=== PATIENT | male | born 1955 | race Caucasian/White ===

== ENCOUNTER 2017-07-29 13:30 | Observation (INO) | payer MEDICAID ==
[~2017-07-29] VITALS: Ht 185.4 cm; Wt 106.6 kg
--- NOTE | ~2017-07-29 | HEMODYNAMI ---
PATIENT:ARMIDA CHATMAN MEDICAL RECORD: [id number] : 53 LOCATION[facility] [id number] ADMISSION DATE: 07/29/17 Generatedon:07/30/201712:58 Patient name: ARMIDA CHATMAN Patient #: [id number] SSN: : 1955 Date of study: 07/30/2017 Page: Of Hemodynamic Procedure Report Patient Data Patient Demographics Procedure consent was obtained First Name: ARMIDA Gender: Male Last Name: LURDES : 1955 Patient #: [id number] Age: 61 year(s) Race: Unknown Additional ID: [id number] Contact details Address: [address] State: [place] City: [place] Zip code: [address] Admission Admission Data Admission Date: 07/29/2017 Admission Time: 17:03 Room #: 2117 Lab Results Lab Result Date: 07/30/2017 Lab Result Time: 0:00 Biochemistry Name Units Result Min Max BUN mg/dl 19 --(----)*- 7 18 Creatinine mg/dl 1 --(--*-)-- 0.6 1.3 CBC Name Units Result Min Max Hemoglobin g/dl 16 --(--*-)-- 13.5 17.5 Procedure Procedure Types Cath Procedure Diagnostic Procedure C Coronaries only Peripheral Cath Diagnostic Procedure Cath Peripheral Renal Arteriogram Procedure Description Procedure Date Procedure Date: 07/30/2017 Procedure Start Time: 12:46 Procedure End Time: 12:57 Procedure Staff Name Function Benny Delacruz MD Performing Physician Lashonda Bedoya RT Monitor Milagros Lew RT Scrub Geneva Wesley RN Nurse Procedure Data Cath Procedure Fluoroscopy Diagnostic fluoroscopy Total fluoroscopy Time: 2.6 time: 2.6 min min Diagnostic fluoroscopy Total fluoroscopy dose: 571 dose: 571 mGy mGy Contrast Material Contrast Material Type Amount (ml) Isovue 300 68 Entry Location Entry Primary Successful Side Size Upsize Upsize Entry Closure Succes sful Closure Location (Fr) 1 (Fr) 2 (Fr) Remarks Device Remarks Femoral Right 5 Fr Exoseal artery Estimated blood loss: 5 ml Diagnostic catheters Device Type Used For End Catheter Placement MULTIPACK Pigtail 5 Fr LV Angiography catheter MULTIPACK JL 4.0 5Fr Left Coronary catheter Angiography MULTIPACK 3DRC 5Fr Multi-vessel catheter Angiography DIAGNOSTIC JL 6 5Fr Left Coronary catheter ([id number]) Angiography Procedure Complications No complications Procedure Medications Medication Administration Route Dosage 0.9% NaCl I.V. 100 ml/hr Oxygen NC 2 l/min Lidocaine 2% added to field 20 Heparin Flush Bag added to field 2 bags (1000units/500ml NS) Fentanyl I.V. 50 mcg Versed I.V. 1 mg Fentanyl I.V. 50 mcg Versed I.V. 1 mg Hemodynamics Rest HGB: 16 (g/dl) Heart Rate: 67 (bpm) Snapshots Pre Cath Intra NCS Post Cath Vital Signs Time Heart Resp SPO2 etCO2 NIBP (mmHg) Rhythm Pain Sedation Rate (ipm) (%) (mmHg) Status Level (bpm) 12:18:54 56 16 100 0 142/82(132) NSR 0 (11) 10(A) , No pain 12:23:06 55 16 99 0 145/87(126) NSR 0 (11) 10(A) , No pain 12:27:18 68 16 98 0 142/89(109) NSR 0 (11) 10(A) , No pain 12:31:25 62 18 96 0 127/81(102) NSR 0 (11) 10(A) , No pain 12:35:33 61 18 96 0 123/80(102) NSR 0 (11) 10(A) , No pain 12:39:41 61 17 96 0 118/76(92) NSR 0 (11) 10(A) , No pain 12:43:47 61 18 96 0 120/75(85) NSR 0 (11) 10(A) , No pain 12:47:53 58 10 96 0 117/78(90) NSR 0 (11) 9(A) , No pain 12:51:59 64 16 96 0 113/75(99) NSR 0 (11) 9(A) , No pain 12:56:02 63 16 96 0 110/76(89) NSR 0 (11) 10(A) , No pain Medications Time Medication Route Dose Verified Delivered Reason Notes E ffectiveness by by 12:21:48 0.9% NaCl I.V. 100ml/hr Benny Bean used for Jayme Wesley RN procedure 12:21:58 Oxygen NC 2 l/min Benny Bean Per Jayme Wesley RN physician 12:22:06 Lidocaine 2% added 20ml Benny Mojicafany for local to vial Jayme Wesley RN anesthetic field 12:22:14 Heparin Flush added 2 bags Benny Bean used for Bag to Jayme Wesley RN procedure (1000units/500ml field NS) 12:45:58 Fentanyl I.V. 50 mcg Benny Bean for Jayme Wesley RN sedation 12:46:06 Versed I.V. 1 mg Benny Mojicafany for Jayme Wesley RN sedation 12:48:06 Fentanyl I.V. 50 mcg Benny Bean for Jayme Wesley RN sedation 12:48:14 Versed I.V. 1 mg Benny Portilloy for Jayme Wesley RN sedation Procedure Log Time Note 11:52:53 Milagros Lew RT(R) sent for patient. Start room use. 11:52:54 Time tracking: Regular hours 11:52:59 Plan of Care:Hemodynamics will remain stable., Cardiac rhythm will remain stable., Comfort level will be maintained., Respiratory function will remain adequate., Patient/ family verbilizes understanding of procedure., Procedure tolerated without complication., Recovers from procedure without complications.. 11:57:00 Lab Result : BUN 19 mg/dl 11:57:00 Lab Result : Hemoglobin 16 g/dl 11:57:00 Lab Result : Creatinine 1 mg/dl 12:10:15 Patient received from Med II to CCL 2 Alert and oriented. Tansferred to table in Supine position. 12:10:17 Warm blankets applied, and steven hugger turned on for patient comfort. 12:10:18 Correct patient and procedure confirmed by team. 12:10:19 Signed procedure consent form obtained from patient. 12:10:21 ECG and BP/O2 sat monitors applied to patient. 12:17:43 Vital chart was started 12:17:54 Baseline sample Acquired. 12:17:55 Full Disclosure recording started 12:18:03 H&P Date Dictated: 07/29/2017 Within 30 days and on chart., H&P Addendum completed by physician on day of procedure. (MUST COMPLETE FOR ALL OUTPATIENTS). 12:18:05 Pre-procedure instructions explained to patient. 12:18:05 Pre-op teaching completed and patient verbalized understanding. 12:18:07 Family in waiting room. 12:18:08 Patient NPO since Midnight. 12:18:11 Is the patient allergic to Iodine/contrast media? No. 12:18:17 Was the patient premedicated? No 12:18:29 Is patient on blood thinner?Yes 12:20:21 ACC The patient was administered the following blood thiners within the last 24 hours: ACCPlavix, ACCLovenox 12:20:23 Patient diabetic? No. 12:20:27 Previous problem with sedation/anesthesia? No ? 12:20:28 Snore? Yes 12:20:29 Sleep apnea? No 12:20:30 Deviated septum? No 12:20:31 Opens mouth fully? Yes 12:20:32 Sticks out tongue? Yes 12:20:36 Airway obstruction? No ? 12:21:00 Dentures? No ? 12:21:10 Pre procedure: right dorsailis pedis pulse 1+ Palpable, but thready & weak; easily obliterated 12:21:14 Patient pain scale 0/10 ?. 12:21:21 IV patent on arrival in left forearm with 0.9% NaCl at KVO. 12:21:23 Lab results completed and on chart. 12:21:24 Alarms reviewed by R. N. 12:21:24 Sharps counted by scrub and verified by R.N. 12:21:48 0.9% NaCl 100ml/hr I.V. was administered by Geneva Wesley RN; used for procedure; 12:21:58 Oxygen 2 l/min NC was administered by Geneva Wesley RN; Per physician; 12:22:06 Lidocaine 2% 20ml vial added to field was administered by Geneva Wesley RN; for local anesthetic; 12:22:14 Heparin Flush Bag (1000units/500ml NS) 2 bags added to field was administered by Geneva Wesley RN; used for procedure; 12:44:46 Zero performed for pressure channel P1 12:44:56 Physician arrived 12:44:56 --------ALL STOP TIME OUT------ 12:44:57 Final Timeout: patient, procedure, and site verified with staff and physician. All members of the team are in agreement. 12:45:01 Right groin site verified by team. 12:45:04 Physical assessment completed. ASA score P 2 - A patient with mild systemic disease as per Benny Delacruz MD. 12:45:08 Sedation plan: IV Moderate Sedation Medication:Versed, Fentanyl 12:45:20 Use device set Femoral Dx 12:45:21 ACIST Syringe (07622) opened to sterile field. 12:45:21 Bag Decanter (2002S) opened to sterile field. 12:45:22 Medline Cath Pack ([id number]) opened to sterile field. 12:45:22 SHEATH 5FR Bethel (TDR327) opened to sterile field. 12:45:23 DIAGNOSTIC WIRE .035 260cm J wire (246907) opened to sterile field. 12:45:25 ACIST Hand Control (79360) opened to sterile field. 12:45:25 ACIST Manifold (84813) opened to sterile field. 12:45:26 DIAGNOSTIC Multipack 5Fr catheter set (HT2251) opened to sterile field. 12:45:27 Tegaderm 4 x 4 (1626W) opened to sterile field. 12:45:58 Fentanyl 50 mcg I.V. was administered by Geneva Wesley RN; for sedation; 12:46:06 Versed 1 mg I.V. was administered by Geneva Wesley RN; for sedation; 12:46:26 Procedure started. 12:46:29 Local anesthetic to right femoral artery with Lidocaine 2% by Benny Delacruz MD.INITIAL ACCESS ONLY 12:47:59 A 5 Fr sheath was inserted into the Right Femoral artery 12:48:06 Fentanyl 50 mcg I.V. was administered by Geneva Wesley RN; for sedation; 12:48:14 Versed 1 mg I.V. was administered by Geneva Wesley RN; for sedation; 12:48:20 A MULTIPACK Pigtail 5 Fr catheter was advanced over the wire and used for LV Angiography. 12:49:18 Catheter removed. 12:49:35 A MULTIPACK JL 4.0 5Fr catheter was advanced over the wire and used for Left Coronary Angiography. 12:49:50 Catheter removed. unable to cannulate vessel. 12:50:59 A MULTIPACK 3DRC 5Fr catheter was advanced over the wire and used for Multi-vessel Angiography. 12:51:04 RCA angiography performed. 12:51:07 Injector settings: Ml/sec: 3, Volume: 6, 12:51:13 Bilateral renal angiography performed. 12:52:16 Catheter removed. 12:52:39 A DIAGNOSTIC JL 6 5Fr catheter ([id number]) was advanced over the wire and used for Left Coronary Angiography. 12:54:00 LCA angiography performed. 12:54:04 Injector settings: Ml/sec: 3, Volume: 6, 12:54:14 Catheter removed. 12:54:17 EXOSEAL 5Fr (EX500) opened to sterile field. 12:54:29 Sheath removed intact; hemostasis achieved with Exoseal to the Right Femoral artery. 12:54:32 Procedure ended.(Physican Out) 12:54:51 Fluoroscopy time 02.60 minutes. 12:54:56 Fluoroscopy dose: 571 mGy 12:54:56 Flurop Dose total: 571 12:55:41 Contrast amount:Isovue 300 68ml. 12:55:51 Insertion/operative site no bleeding no hematoma. 12:55:53 Post-op/insertion site Right Femoral artery dressed using a 4 x 4 and Tegaderm. 12:55:56 Post right femoral artery:stable 12:55:57 Post Procedure Pulses reassessed and unchanged 12:56:00 Post procedure rhythm: unchanged. 12:56:04 Estimated blood loss: 5 ml 12:56:05 Post procedure instruction explained to patient.Patient verbalizes understanding. 12:56:06 Patient needs reinforcement of post procedure teaching. 12:56:55 Procedure type changed to Cath procedure, Diagnostic procedure, LHC, Coronaries only, Peripheral Cath Diagnostic Procedure, Cath Peripheral, Renal Arteriogram 12:57:19 Procedure and supply charges have been captured, reviewed, submitted and are correct. 12:57:24 Procedure Complication : No complications 12:57:26 Vital chart was stopped 12:57:26 See physician's report for complete and final results. 12:57:[address] [facility]. 12:57:30 Patient transfered to [facility] with Stretcher. 12:57:32 Procedure ended. 12:57:32 Full Disclosure recording stopped 12:57:40 End room use (Document Last) Device Usage Item Name Manufacture Quantity Catalog Hospital Part Current Minimal L ot# / Number Charge Number Stock Stock Serial# Code ACIST Acist 1 91378 914402 710318 637897 20 Syringe Medical (65722) Systems Inc Bag Microtek 1 2001S 348090 20480 749922 5 Decanter Medical Inc. (2001S) Medline Cardinal 1 [id number] 321478 54319 065473 5 Cath Pack Health ([id number]) SHEATH 5FR Terumo 1 RSR710 375894 288953 723951 40 Bethel (XOG607) DIAGNOSTIC St Celso 1 216273 713931 030685 913929 30 WIRE .035 260cm J wire (185955) ACIST Hand Acist 1 69610 121970 170874 079501 5 Control Medical (58243) Systems Inc ACIST Acist 1 84132 798045 821385 657359 5 Manifold Medical (83086) Systems Inc DIAGNOSTIC Cardinal 1 AD9624 525074 82497 955294 30 Multipack Health 5Fr catheter set (GD0742) Tegaderm 4 3M 1 1626W 829334 884447 507992 5 x 4 (1626W) MULTIPACK Cardinal 1 291280 5 Pigtail 5 Health Fr catheter MULTIPACK Cardinal 1 098340 5 JL 4.0 5Fr Health catheter MULTIPACK Cardinal 1 529439 5 3DRC 5Fr Health catheter DIAGNOSTIC Cardinal 1 [id number] 801408 885194 989451 5 JL 6 5Fr Health catheter (235398N) EXOSEAL 5Fr Cardinal 1 EX500 447822 494487 926780 10 (EX500) Health Signature Audit [place] Stage Time Signature Unsigned Intra-Procedure 07/30/2017 Lashonda Bedoya 12:58:37 PM RT(R) Signatures Monitor : Lashonda Bedoya RT Signature : Date : Time : [facility] [address] [place] [address]
--- NOTE | ~2017-07-29 | DS ---
PATIENT:ARMIDA CHATMAN :53 MEDICAL RECORD: [id number] DISCHARGE SUMMARY ADMISSION DATE: 07/29/17 DISCHARGE DATE: 07/30/17 DIAGNOSES: 1. Hypertensive crisis. 2. Essential hypertension. 3. Aortic stenosis. HOSPITAL COURSE: This is a gentleman who presents with hypertensive crisis, was found to have a mildly elevated troponin. However, cardiac catheterization revealed no significant coronary artery disease. The aortic valve could not be crossed at the time of cardiac catheterization. He was placed on Coreg, lisinopril, his blood pressure is under good control. He did undergo renal angiography and has no renal artery stenosis, was discharged home with the addition of the carvedilol and lisinopril to his medical regimen. We will follow with him in 1-2 weeks for an echocardiogram to evaluate aortic valve. TRANSINT:[id number] Voice Confirmation ID: [id number] DOCUMENT ID: [id number] MERLINE WHITE MD CC: [id number] DICTATION DATE: 07/30/17 1433 MANAGER BATTERY: 07/31/17 0300 DIS IN 07/30/17 [facility] [address] [place] [id number]
--- NOTE | ~2017-07-29 | HP ---
PATIENT: ARMIDA CHATMAN MEDICAL RECORD: [id number] ACCOUNT: [id number] LOCATION:[facility].2117 : 53 ADMISSION DATE: 07/29/17 HISTORY AND PHYSICAL EXAMINATION DIAGNOSES: 1. Unstable angina. 2. Hypertensive crisis. 3. Abnormal ECG. HISTORY OF PRESENT ILLNESS: This is a gentleman with no past history of ischemic heart disease, has been having chest pain, chest discomfort, presented with hypertension with systolic blood pressure in the 200 range as well as an increased troponin. His EKG has T-wave inversions laterally consistent with ischemia. REVIEW OF SYSTEMS: The patient reports easy bruising but reports no swollen glands. The patient reports no fever, no night sweats, no significant weight gain, no significant weight loss. No significant exercise tolerance. The patient reports no dry eyes, no irritation, no vision change. Patient reports no difficulty hearing and no ear pain. Patient reports no frequent nose bleeds or nose and sinus problems. Patient reports on arm pain on exertion. No shortness of breath while lying down. No history of heart murmur. Patient reports no cough, no wheezing or coughing up blood. Patient reports no abdominal pain, no vomiting. Normal appetite. No diarrhea and not vomiting blood. No nausea and no constipation. Patient reports no incontinence. No difficulty urinating. No hematuria. No increased frequency. Patient reports no muscle aches. No weakness, no arthralgias, no back pain. No swelling of the extremities. Patient reports no abnormal mole, no jaundice, no rashes. Reports no loss of consciousness. No weakness and no numbness. No seizures, dizziness, or headaches. The patient reports no depression, no sleep disturbance, feeling safe in a relationship and no alcohol abuse. Patient reports on fatigue. Reports no runny nose or sinus pressure. No itching, no hives, and no frequent sneezing. PHYSICAL EXAMINATION: GENERAL APPEARANCE: Well-nourished, well-developed, appears stated age. Level of distress, comfortable. PSYCHIATRIC: Mental status, alert, normal affect. Orientation, oriented to time, place and person. EYES: Lids and conjunctiva, noninjected. No discharge, no pallor. ENT: Lips, teeth, gums, normal dentition. Oropharynx, no cyanosis, no pallor. NECK: Carotid arteries, bilateral normal upstroke, no bruits, no thrills. JUGULAR VEINS: No jugular venous pressure or distention. CERVICAL LYMPH NODES: Nontender, nonenlarged. THYROID: Not enlarged. Nontender. No nodules. LUNGS: Respiratory effort, unlabored. CHEST: Normal curvature. No thoracic deformity. No chest wall tenderness. Percussion, resonant. Auscultation, clear. No wheezes, no rales, no rhonchi. CARDIOVASCULAR: Precordial exam, nondisplaced. No heaves or pericardial thrills. Rate and rhythm, regular. Heart sounds, normal S1, normal S2. No S3, no gallop, no rub. Systolic murmur, not heard. Diastolic murmur, not heard. EXTREMITIES: No cyanosis, no edema. Peripheral pulses, full and equal in all extremities, except as noted. No bruits appreciated. ABDOMEN: Soft, nondistended. Normal aorta. No bruit. Nontender. No masses. HISTORY AND PHYSICAL [id number] LURDES,ARMIDA Liver, nontender, no hepatomegaly. Spleen, nontender, no splenomegaly. MUSCULOSKELETAL: No joint tenderness. No joint swelling. No erythema. NEUROLOGICAL: Normal gait, normal strength, normal tone. SKIN: Warm and dry. OVERALL IMPRESSION: Hypertensive crisis with ischemic heart disease. He may have underlying coronary artery disease as well, but he clearly has demand ischemia. We will start him on a beta-gee, DARRYL inhibitor, aspirin, and Plavix as well. PLAN: Proceed with coronary angiography in the a.m. Further care depends upon findings of the angiography. TRANSINT:[id number] Voice Confirmation ID: [id number] DOCUMENT ID: [id number] MERLINE WHITE MD at 1429 CC: [id number] DICTATION DATE: 07/29/17 1553 BUNK HOUSE WORKER: 07/29/17 1651 ADM IN [facility] [address] [place] [address]
[2017-07-29 14:08] LABS: BASOPHILS 0.1 % (0-2); EOSINOPHILS 0 % (0-7); HEMATOCRIT 47.2 % (42.0-54.0); IMMATURE GRANULOCYTES 0.3 % (0-5); LYMPHOCYTES 15.3 % (15-50); MCH 29.6 pg (26.0-34.0); MCHC 33.9 g/dL (31.0-37.0); MCV 87.2 fL (80.0-100.0); MEAN PLATELET VOLUME 10.7 fL (7.4-10.4); NEUTROPHILS 80.3 % (40-80); PLATELET COUNT 207 10x3/uL (130-400); RBC 5.41 10x6/uL (4.20-6.10); RDW 15.1 % (11.5-14.5)
[2017-07-29 14:19] LABS: APPEARANCE CLEAR (CLEAR); BACTERIA FEW /hpf (NONE SEEN); BILIRUBIN NEGATIVE (NEGATIVE); COLOR YELLOW (YELLOW); EPITHELIAL CELLS OCC /hpf (0-5); GLUCOSE NEGATIVE (NEGATIVE); KETONE NEGATIVE (NEGATIVE); NITRITE NEGATIVE (NEGATIVE); PROTEIN 2+ mg/dL (NEGATIVE); RED CELLS - URINE OCC /hpf (0-5); UROBILINOGEN NORMAL (NORMAL); WHITE CELLS - URINE NSEEN /hpf (0-5)
[2017-07-29 15:01] LABS: ALBUMIN 3.7 g/dL (3.4-5.0); ALKALINE PHOSPHATASE 72 U/L (46-116); ALT (SGPT) 33 U/L (10-68); BILIRUBIN - TOTAL 0.41 mg/dL (0.2-1.3); CALC OSMOLALITY 281 mosm/kg (275-300); CALCIUM 8.8 mg/dL (8.5-10.1); CARBON DIOXIDE 25.1 mmol/L (21.0-32.0); CHLORIDE - SERUM 104 mmol/L (98-107); GLUCOSE 120 mg/dL (74-106); POTASSIUM - SERUM 4.2 mmol/L (3.5-5.1); PROTEIN - SERUM 7.6 g/dL (6.4-8.2); SODIUM 140 mmol/L (136-145); UREA NITROGEN 19 mg/dL (7-18); eGFR NON AFRICAN AMERICAN 80 mL/min (90-120)
[2017-07-29 15:17] LABS: CREATINE KINASE 80 UL (21-232)
[2017-07-29 15:19] LABS: TROPONIN-I 0.314 ng/mL (0.000-0.060)
[2017-07-29 18:03] VITALS: BP 97/64; BMI 31.7
[2017-07-29 20:00] VITALS: BP 101/59
[2017-07-29 23:21] LABS: CKMB 1.6 U/L (0.0-3.6); CREATINE KINASE 58 UL (21-232)
[2017-07-29 23:23] LABS: TROPONIN-I 0.231 ng/mL (0.000-0.060)
[2017-07-30] VITALS: BP 107/62
[2017-07-30 04:00] VITALS: BP 131/80
[2017-07-30 05:22] LABS: CKMB 1.4 U/L (0.0-3.6); CREATINE KINASE 46 UL (21-232)
[2017-07-30 05:24] LABS: TROPONIN-I 0.234 ng/mL (0.000-0.060)
[2017-07-30 08:20] VITALS: BP 111/75
[2017-07-30 12:05] VITALS: Ht 185.4 cm; Wt 106.6 kg
[2017-07-30] MEDS ORDERED: AUGMENTIN 500-11 TA1 PO (14:24)
[2017-07-30] MEDS ORDERED: COREG25 MG PO (14:33)
[2017-07-30] MEDS ORDERED: PRINIVIL20 MG PO (14:34)
[2017-07-30 15:35] VITALS: BP 111/70
== END 2017-07-30 16:41 | disposition home or self-care (01) ==
LOC: D.ER 13:30 → D.M2 17:03 → OBSVTIME 17:03 → D.M2 07-30 12:50 → D.SDCHOLD 07-30 12:50 → D.M2 07-30 16:41
PROVIDERS: Emergency Medicine
DX: I16.9 Hypertensive crisis, unspecified (principal); R94.31 Abnormal electrocardiogram [ECG] [EKG]; I24.8 Other forms of acute ischemic heart disease; I35.0 Nonrheumatic aortic (valve) stenosis

== ENCOUNTER 2017-08-20 14:12 | Inpatient (IN) | payer MEDICAID ==
[~2017-08-20] VITALS: Ht 185.4 cm; Wt 103.6 kg
--- NOTE | ~2017-08-20 | TEE ---
PATIENT:ARMIDA CHATMAN MEDICAL RECORD: [id number] LOCATION:[place] [address] AGE OF PATIENT: 61 ADMISSION DATE: 08/20/17 SEX: M REFERRING PHYSICIAN: INTERPRETING PHYSICIAN: NIKUNJ CHIN MD TRANSESOPHAGEAL ECHOCARDIOGRAM RITU CHARGE Y INDICATIONS: PREMEDICATIONS: ASSESS AORTIC STENOSIS PATIENT'S RESPONSE PROCEDURE DOPPLER MEASUREMENTS: LVIT LA PA RA LVOT 207 RVOT Asc. Ao 329 AV Gradient Peak 43.41 AV Mean 24.84 AV Area 0.04 MV Gradient Peak MV Mean MV Area INTERPRETATION: Doppler: 2-D: COLOR FLOW DOPPLER NORMAL SALINE STUDY: MISCELLANOUS: DIAGNOSIS: PLAN: Car Shunter:4 Dr. [employer]iv[employer] Trader: Vinny GODOY COMMENTS: MIGUEL ANGEL TRACED 0.6CM DATE OF SERVICE: 08/23/2017 PROCEDURE: Transesophageal echocardiogram. The patient was brought into the catheterization suite and placed in the supine position on the gurney. The patient then had the oral airway anesthetized with Maalox and lidocaine. He had mild conscious sedation with 1 of Versed and 25 of fentanyl. The patient then had esophageal probe passed in the midesophagus, where we could visualize very well the aortic valve both in sagittal and coronal TRANSESOPHAGEAL ECHOCARDIOGRAM REPORT [id number] ARMIDA CHATMAN views. We were able to take a Doppler flow of that valve also. Planimetry showed the valve to be severely stenosed at 1.1 cm-squared. There was also severe aortic regurgitation. IMPRESSION AND RECOMMENDATIONS: The patient has severe aortic stenosis and regurgitation with degenerative disease of the aortic valve. Eyak annulus is normal size. There is no dilatation. TRANSINT:[id number] Voice Confirmation ID: [id number] DOCUMENT ID: [id number] at 1001 CC: [id number] DICTATION DATE: 08/23/17 1543 TRAVEL MANAGER: 08/23/17 1627 DIS IN 08/30/17 [place] [id number] [place] [id number]
--- NOTE | ~2017-08-20 | TEE ---
PATIENT:ARMIDA CHATMAN MEDICAL RECORD: [id number] LOCATION:[place] [address] AGE OF PATIENT: 61 ADMISSION DATE: 08/20/17 SEX: M REFERRING PHYSICIAN: INTERPRETING PHYSICIAN: MERLINE WHITE MD TRANSESOPHAGEAL ECHOCARDIOGRAM RITU CHARGE Y INDICATIONS: AVR PREMEDICATIONS: ASSESS AORTIC STENOSIS PATIENT'S RESPONSE PROCEDURE DOPPLER MEASUREMENTS: LVIT LA PA RA LVOT 207 RVOT Asc. Ao 329 AV Gradient Peak 43.41 AV Mean 24.84 AV Area 0.04 MV Gradient Peak MV Mean MV Area INTERPRETATION: LVd: 3.9 cm LVs: 2.0 cm Doppler: 2-D: COLOR FLOW DOPPLER NORMAL SALINE STUDY: MISCELLANOUS: DIAGNOSIS: PLAN: Confectionery Drops Machine Operator:Yani Epstein Gui Developer: Fernando SKINNER COMMENTS: MIGUEL ANGEL TRACED 0.6CM DATE OF SERVICE: 08/24/2017 PROCEDURE: Transesophageal echo evaluation of valvular structures during aortic valve replacement. FINDINGS: 1. Left ventricular chamber size is within normal limits. Left ventricular systolic function is normal. Overall ejection fraction estimated at 50%. 2. Left atrium, right atrium, and right ventricular chamber sizes are mildly TRANSESOPHAGEAL ECHOCARDIOGRAM REPORT [id number] ARMIDA CHATMAN dilated. 3. Valvular structures: Aortic valve demonstrates moderate to severe calcific aortic stenosis. The remaining valvular structures have normal structure and motion. 4. Doppler interrogation elsewise reveals moderate aortic insufficiency, mild mitral regurgitation. No other valvular insufficiency or stenosis. 5. No evidence of pericardial effusion or left ventricular thrombus. TRANSINT:[id number] Voice Confirmation ID: [id number] DOCUMENT ID: [id number] at 1202 CC: [id number] DICTATION DATE: 08/24/17 1207 SURGICAL ASSISTANT CERTIFIED: 08/24/17 1229 DIS IN 08/30/17 [place] [address]
--- NOTE | ~2017-08-20 | HEMODYNAMI ---
PATIENT:ARMIDA CHATMAN MEDICAL RECORD: [id number] : 53 [address] [id number] ADMISSION DATE: 08/20/17 Generatedon:08/23/201710:38 Patient name: ARMIDA CHATMAN Patient #: [id number] SSN: : 1955 Date of study: 08/23/2017 Page: Of Hemodynamic Procedure Report Patient Data Patient Demographics Procedure consent was obtained First Name: ARMIDA Gender: Male Last Name: LURDES : 1955 Patient #: [id number] Age: 61 year(s) Race: Unknown Additional ID: [id number] Contact details Address: [address] State: [place] City: [place] Zip code: [address] Past Medical History Allergies: No known allergies Admission Admission Data Admission Date: 08/20/2017 Admission Time: 19:22 Room #: [facility] Lab Results Lab Result Date: 08/23/2017 Lab Result Time: 0:00 Biochemistry Name Units Result Min Max BUN mg/dl 15 --(--*-)-- 7 18 Creatinine mg/dl 0.9 --(-*--)-- 0.6 1.3 CBC Name Units Result Min Max Hemoglobin g/dl 15 --(-*--)-- 13.5 17.5 Procedure Procedure Types Cath Procedure Diagnostic Procedure RITU Procedure Description Procedure Date Procedure Date: 08/23/2017 Procedure Start Time: 10:04 Procedure Staff Name Function Naman Epstein MD Performing Physician Linsey Lyn RT Monitor Piedad Reynoso RT Statistical Analyst Yony Cortes RN Nurse Zaheer Elliott Application Support Analyst Procedure Data Procedure Complications No complications Procedure Medications Medication Administration Route Dosage 0.9% NaCl I.V. 100 ml/hr Oxygen NC 2 l/min Versed I.V. 1 mg Fentanyl I.V. 25 mcg Versed I.V. 1 mg unlisted medication 30 ml unlisted medication Hemodynamics Rest HGB: 15 (g/dl) Heart Rate: 88 (bpm) Snapshots Pre Cath Intra NCS Post Cath Vital Signs Time Heart Resp SPO2 etCO2 NIBP (mmHg) Rhythm Pain Sedation Rate (ipm) (%) (mmHg) Status Level (bpm) 10:21:17 83 19 94 0 140/84(119) NSR 0 (11) 10(A) , No pain 10:25:57 81 13 93 0 124/79(96) NSR 0 (11) 10(A) , No pain 10:30:40 89 16 93 0 111/66(99) NSR 0 (11) 10(A) , No pain 10:35:21 87 27 95 0 105/70(88) NSR 0 (11) 10(A) , No pain Medications Time Medication Route Dose Verified Delivered Reason Notes Effective ness by by 10:30:04 viscous Yony Naman for local lidocaine Sebastian Epstein MD anesthetic RN 10:30:24 maalox p.o. 30 ml Yony Naman for local Sebastian Epstein MD anesthetic RN 10:30:42 0.9% NaCl I.V. 100 Yony Yony Per ml/hr Lorigan Lorigan physician RN RN 10:30:53 Oxygen NC 2 Yony Yony Per l/min Lorigan Lorigan physician RN RN 10:31:05 Versed I.V. 1 mg Yony Yony for Lorigan Lorigan sedation RN RN 10:31:14 Fentanyl I.V. 25 Yony Yony for mcg Lorigan Lorigan sedation RN RN 10:32:24 Versed I.V. 1 mg Yony Yony for Lorigan Lorigan sedation RN identity management developer Log Time Note 10:05:27 Linsey Lyn RT(R) sent for patient. Start room use. 10:20:21 Patient arrived from Med II to CCL 1. Patient remains on bed/stretcher for procedure. 10:20:22 Warm blankets applied, and steven hugger turned on for patient comfort. 10:20:23 Correct patient and procedure confirmed by team. 10:20:24 Signed procedure consent form obtained from patient. 10:20:25 ECG and BP/O2 sat monitors applied to patient. 10:20:26 Vital chart was started 10:20:45 Baseline sample Acquired. 10:20:50 Rhythm: sinus rhythm 10:20:51 Full Disclosure recording started 10:21:06 H&P Date Dictated: 08/20/2017 Within 30 days and on chart.. 10:21:07 Pre-procedure instructions explained to patient. 10:21:07 Pre-op teaching completed and patient verbalized understanding. 10:21:09 Family in patients room. 10:21:11 Patient NPO since Midnight. 10:21:18 Patient allergic to No known allergies 10:21:23 Is the patient allergic to Iodine/contrast media? No. 10:21:37 Is patient on blood thinner?No 10:21:55 Patient diabetic? No. 10:21:58 Previous problem with sedation/anesthesia? No ? 10:21:59 Snore? Yes 10:22:00 Sleep apnea? No 10:22:02 Deviated septum? No 10:22:03 Opens mouth fully? Yes 10:22:04 Sticks out tongue? Yes 10:22:05 Airway obstruction? No ? 10:22:07 Dentures? No ? 10:22:15 IV patent on arrival in right hand with 0.9% NaCl at [facility]. 10:22:49 Lab Result : Creatinine 0.9 mg/dl 10::49 Lab Result : BUN 15 mg/dl 10:22:49 Lab Result : Hemoglobin 15 g/dl 10:22:52 Lab results completed and on chart. 10:23:02 Alarms reviewed by R. N. 10:23:02 Sharps counted by scrub and verified by R.N. 10:26:58 --------ALL STOP TIME OUT------ 10::59 Final Timeout: patient, procedure, and site verified with staff and physician. All members of the team are in agreement. 10:27:03 Physical assessment completed. ASA score P 2 - A patient with mild systemic disease as per Naman Epstein MD. 10:27:06 Sedation plan: IV Moderate Sedation Medication:Versed, Fentanyl 10:27:30 Zaheer Elliott Flow Manager present for RITU. 10:30:00 RITU started. 10:30:04 viscous lidocaine was administered by Naman Epstein MD; for local anesthetic; 10:30:24 maalox 30 ml p.o. was administered by Naman Epstein MD; for local anesthetic; 10:30:42 0.9% NaCl 100 ml/hr I.V. was administered by Yony Cortes RN; Per physician; 10:30:53 Oxygen 2 l/min NC was administered by Yony Cortes RN; Per physician; 10:31:05 Versed 1 mg I.V. was administered by Yony Cortes RN; for sedation; 10:31:14 Fentanyl 25 mcg I.V. was administered by Yony Cortes RN; for sedation; 10:32:21 RITU completed. 10:32:24 Versed 1 mg I.V. was administered by Yony Cortes RN; for sedation; 10:32:37 Procedure ended.(Physican Out) 10:36:06 Post procedure rhythm: unchanged. 10:36:09 Post procedure instruction explained to patient.Patient verbalizes understanding. 10:36:10 Patient needs reinforcement of post procedure teaching. 10:36:19 Procedure Complication : No complications 10:36:21 Vital chart was stopped 10:36:22 See physician's report for complete and final results. 10:36:35 Report given to PCU. 10:36:37 Patient transfered to PCU with Bed. 10:36:48 End room use (Document Last) Signature Audit [place] Stage Time Signature Unsigned Intra-Procedure 08/23/2017 Piedad Reynoso 10:38:13 AM RT(R) Signatures Monitor : Linsey Signature : Counts RT Date : Time : [place] [id number] [place] [address]
--- NOTE | ~2017-08-20 | OP ---
PATIENT NAME: ARMIDA CHATMAN MEDICAL RECORD: [id number] :53 LOCATION:[facility].CV07 ADMISSION DATE:08/20/17 SURGEON: VLADISLAV CARVALHO MD DATE OF OPERATION: 08/24/2017 SURGEON: Vladislav Carvalho MD VEGETABLE WASHING MACHINE OPERATOR: LALI Anne OPERATION PERFORMED: Aortic valve replacement (25 mm pericardial bioprosthesis). PREOPERATIVE DIAGNOSES: Aortic stenosis, aortic insufficiency, congestive heart failure. POSTOPERATIVE DIAGNOSES: Aortic stenosis, aortic insufficiency, congestive heart failure. ANESTHESIA: General endotracheal anesthesia. ESTIMATED BLOOD LOSS: Total cardiopulmonary bypass 220 cc Cell Saver re-transfusion. COMPLICATIONS: None. SPECIMENS: Aortic valve leaflets. CONDITION: Stable. DISPOSITION: CV-ICU. OPERATIVE FINDINGS: 1. Transesophageal echocardiography confirmed, severe leaflet calcification and after valve replacement, no perivalvular leak. Thick heart with significant left ventricular hypertrophy. No wall motion abnormalities. 2. Densely calcified valve leaflets including a functional bicuspid valve with complete fusion of the left and right valve leaflet with moderate annular calcification easily debrided and some calcification extending down on to the anterior leaflet of the mitral valve. Pledgeted sutures were used from the ventricular to the aortic side and no evidence of perivalvular leak. 3. The patient had a moderately enlarged ascending aorta measuring between 4 and 4.5 cm within normal wall thickness. OPERATIVE INDICATION: Aortic stenosis and aortic insufficiency with congestive heart failure. DESCRIPTION OF PROCEDURE: The patient was brought to the operating suite. General anesthesia was obtained, the patient was prepped and draped. Vertical midline incision was made. Subcutaneous tissue was divided with electrocautery. Sternum was divided with a saw. Heparin was given. Pericardium was opened. Aorta was cannulated in the distal ascending aorta just at the base of the innominate artery between 2 concentric pursestrings. Dual stage venous cannula was inserted through a pursestring in the right atrial appendage. Retrograde cardioplegic cannula was inserted. The patient was placed on cardiopulmonary bypass. Left ventricular vent was placed. The patient was cooled. Crossclamp OPERATIVE REPORT [id number] ARMIDA CHATMAN was placed. Cardioplegia given antegrade through an angiocatheter and then retrograde and this was repeated at 20-minute intervals during the crossclamp time. Transverse aortotomy was made and the valve was visualized. The valve was thoroughly debrided, taking care to protect the left main. Thorough irrigation was undertaken. All loose bits of debris were removed. Interrupted pledgeted valve sutures were placed from the ventricular to the aortic side. The valve had previously been measured and a 25-mm prosthesis was sutured into place and carefully lowered. All sutures were tied. Inspecting through the valve, there was no subvalvular obstruction and all pledgets were well seated. The patient was rewarmed. The aortotomy was closed with double running pledgeted suture line. The left ventricular apex was de-aired with Valsalva maneuver and volume in the heart and the aortic root was deaired through the previous cardioplegia site. Cross clamp was removed with the patient fully rewarmed, the patient resumed a spontaneous rhythm after defibrillation. Transesophageal echocardiography was used to aid in de-airing the patient and again the apex was de-aired. Then, the left ventricular vent was removed. Retrograde cardioplegia cannula was removed. Atrial and ventricular pacing wires were placed. The patient was fully rewarmed, weaned cardiopulmonary bypass and was stable. The patient was decannulated. Protamine was given. The cannula sites were oversewn. Thorough irrigation was undertaken and hemostasis was insured. Drains were placed in the mediastinum. Pericardial fat was loosely reapproximated. Hemostasis was assured in the sternum. The sternum was closed with wires. Fascia was closed. Subcutaneous tissue was closed. Skin was closed. Dermabond was placed. The needle and sponge counts were reported as correct and the patient was taken to the ICU in stable condition. TRANSINT:[id number] Voice Confirmation ID: [id number] DOCUMENT ID: [id number] VLADISLAV CARVALHO MD at 0824 CC: NIKUNJ CHIN MD [id number] DICTATION DATE: 08/24/17 1705 SALES CLOSER: 08/24/17 1804 ADM IN [place] [address] [place] [address]
--- NOTE | ~2017-08-20 | EC ---
PATIENT:ARMIDA CHATMAN DATE OF SERVICE: 08/20/17 SEX: M MEDICAL RECORD: [id number] DATE OF : 53 LOCATION:[place] [address] AGE OF PATIENT: 61 ADMISSION DATE: 08/20/17 REFERRING PHYSICIAN: INTERPRETING PHYSICIAN: NIKUNJ CHIN MD ECHOCARDIOGRAM REPORT ECHO CHARGES 5 ECHO LIMITED CLINICAL DIAGNOSIS: ASSESS AORTIC STENOSIS/ EF/ CHF ECHOCARDIOGRAPHIC MEASUREMENTS (adult normal given) AC root (d.<3.7cm) cm LV Septum d (<1.2 cm> 2.1 cm Valve Excursion cm LV Septum (systole) 2.3 cm Left Atria (s.<4.0cm> cm LVPW d(<1.2cm) 2.5 cm RV (d.<2.3cm) cm LVPW (sytole) 2.9 cm LV diastole(<5.6CM) 4.5 cm MV E-F(>70mm/sec) cm LV systole 2.9 cm LVOT Diameter 1.7 cm MV exc.(>10mm) cm Est.ejection fraction (50-75%) % Pericardial Effusion N DOPPLER: LVIT cm/sec A cm/sec E cm/sec LA cm/sec RVSP mmHg LVOT 207 cm/sec AOP1/2T m/s Asc. Ao 329 cm/sec RVOT cm/sec RA cm/sec PA cm/sec AV Gradient Peak 43.41mmHg AV Mean 24.84mmHg AV Area 0.04 cm MV Gradient Peak mmHg MV Mean mmHg MV Area cm COMMENTS: MIGUEL ANGEL TRACED 0.6CM Air Duct Mechanic: Vinny GODOY Filler Wiper: 4 Dr. Chin TAPE# PACS DATE OF SERVICE: 08/21/2017 PROCEDURE: Transthoracic echocardiogram. FINDINGS: 1. The patient has left ventricular hypertrophy with preserved function. Ejection fraction is 60%. No obvious regional wall motion abnormalities. 2. The aortic valve is shown to be thickened and calcified with evidence of aortic stenosis that appears to be severe. Peak pressure gradients that we got initially were very mild. They elevated at 43 mmHg; however, the LVOT VTI to ECHOCARDIOGRAM REPORT [id number] ARMIDA CHATMAN aortic valve VTI was greater than 4 to 1 indicating severe aortic stenosis and likely we just did not get a great peak pressure on this and be reasonable to go forward with transesophageal echocardiogram for further delineation of the aortic valve anatomy. TRANSINT:[id number] Voice Confirmation ID: [id number] DOCUMENT ID: [id number] NIKUNJ CHIN MD at 1001 CC: [id number] DICTATION DATE: 08/22/17 0829 AGRICULTURE TEACHER: 08/22/17 1054 DIS IN 08/30/17 [place] [id number] [place] [id number]
[~2017-08-20 14:12] MED LIST: AUGMENTIN 500-11 TA1 PO; COREG25 MG PO; PRINIVIL20 MG PO
[2017-08-20 14:49] LABS: BASOPHILS 0.1 % (0-2); EOSINOPHILS 0.1 % (0-7); HEMATOCRIT 44.4 % (42.0-54.0); IMMATURE GRANULOCYTES 0.3 % (0-5); LYMPHOCYTES 14.1 % (15-50); MCH 29.7 pg (26.0-34.0); MCHC 33.8 g/dL (31.0-37.0); MCV 87.9 fL (80.0-100.0); NEUTROPHILS 77.4 % (40-80); PLATELET COUNT 183 10x3/uL (130-400); RBC 5.05 10x6/uL (4.20-6.10); RDW 15.2 % (11.5-14.5); WBC 9.8 10x3/uL (4.8-10.8)
[2017-08-20 15:16] LABS: ALBUMIN 3.3 g/dL (3.4-5.0); ALKALINE PHOSPHATASE 61 U/L (46-116); ALT (SGPT) 28 U/L (10-68); BILIRUBIN - TOTAL 1.18 mg/dL (0.2-1.3); CALC OSMOLALITY 274 mosm/kg (275-300); CALCIUM 8.9 mg/dL (8.5-10.1); CARBON DIOXIDE 28.4 mmol/L (21.0-32.0); CHLORIDE - SERUM 100 mmol/L (98-107); CREATININE - SERUM 0.9 mg/dL (0.6-1.3); GLUCOSE 99 mg/dL (74-106); POTASSIUM - SERUM 3.5 mmol/L (3.5-5.1); PROTEIN - SERUM 7.4 g/dL (6.4-8.2); SODIUM 137 mmol/L (136-145); UREA NITROGEN 15 mg/dL (7-18); eGFR NON AFRICAN AMERICAN > 90 mL/min (90-120)
[2017-08-20 15:21] LABS: CREATINE KINASE 62 UL (21-232); PRO BNP 2374 pg/mL (0-125)
[2017-08-20 23:44] VITALS: BMI 31.7
[2017-08-21] VITALS: BP 127/73
[2017-08-21 04:00] VITALS: BP 133/75
[2017-08-21 08:02] VITALS: BP 112/68
[2017-08-21 11:03] VITALS: BMI 31.6
[2017-08-21 11:34] VITALS: BP 118/72
[2017-08-21 16:13] VITALS: BP 134/64
[2017-08-21 19:36] VITALS: Ht 185.4 cm; Wt 103.6 kg
[2017-08-21 20:00] VITALS: BP 131/68
[2017-08-22 04:00] VITALS: BP 121/78
[2017-08-22 08:00] VITALS: BP 106/63
[2017-08-22 12:34] VITALS: BP 144/71
[2017-08-22 17:14] VITALS: BP 156/88
[2017-08-22 20:12] VITALS: BP 119/64
[2017-08-23 02:32] VITALS: BP 143/81
[2017-08-23 06:23] VITALS: BP 140/80
[2017-08-23 07:39] VITALS: BP 123/76
[2017-08-23 10:17] LABS: BASOPHILS 0.2 % (0-2); EOSINOPHILS 0.6 % (0-7); HEMATOCRIT 47.4 % (42.0-54.0); HEMOGLOBIN 15.4 g/dL (13.5-17.5); IMMATURE GRANULOCYTES 0.2 % (0-5); LYMPHOCYTES 13.5 % (15-50); MCH 29.8 pg (26.0-34.0); MCHC 32.5 g/dL (31.0-37.0); MCV 91.7 fL (80.0-100.0); MEAN PLATELET VOLUME 9.7 fL (7.4-10.4); MONOCYTES 10.7 % (2-11); NEUTROPHILS 74.8 % (40-80); RBC 5.17 10x6/uL (4.20-6.10); RDW 14.9 % (11.5-14.5); WBC 10.1 10x3/uL (4.8-10.8)
[2017-08-23 10:23] LABS: PLATELET COUNT 225 10x3/uL (130-400)
[2017-08-23 10:31] LABS: APTT 30.6 SECONDS (22.8-39.4); INR 1.14 (0.85-1.17); PROTIME 14.2 SECONDS (11.6-15.0)
[2017-08-23 11:10] LABS: ALBUMIN 3.1 g/dL (3.4-5.0); ALKALINE PHOSPHATASE 67 U/L (46-116); ALT (SGPT) 31 U/L (10-68); CALC OSMOLALITY 281 mosm/kg (275-300); CALCIUM 8.2 mg/dL (8.5-10.1); CARBON DIOXIDE 27.8 mmol/L (21.0-32.0); CHLORIDE - SERUM 102 mmol/L (98-107); CHOLESTEROL, TOTAL 203 mg/dL (0-200); CREATININE - SERUM 0.9 mg/dL (0.6-1.3); GLUCOSE 103 mg/dL (74-106); PHOSPHOROUS 3.1 mg/dL (2.5-4.9); POTASSIUM - SERUM 4.9 mmol/L (3.5-5.1); PROTEIN - SERUM 7.2 g/dL (6.4-8.2); SODIUM 139 mmol/L (136-145); T4 THYROXIN - FREE 1.18 ng/dL (0.76-1.46); THYROID STIMULATING HORMONE 0.97 uIU/mL (0.36-3.74); UREA NITROGEN 24 mg/dL (7-18); URIC ACID 6.9 mg/dL (2.6-7.2); eGFR NON AFRICAN AMERICAN > 90 mL/min (90-120)
[2017-08-23 15:32] VITALS: BP 118/66
[2017-08-23 17:37] LABS: APPEARANCE CLEAR (CLEAR); COLOR YELLOW (YELLOW)
[2017-08-23 17:38] LABS: BACTERIA FEW /hpf (NONE SEEN); BILIRUBIN NEGATIVE (NEGATIVE); GLUCOSE NEGATIVE (NEGATIVE); KETONE NEGATIVE (NEGATIVE); NITRITE NEGATIVE (NEGATIVE); PROTEIN NEGATIVE (NEGATIVE); RED CELLS - URINE 0-5 /hpf (0-5); UROBILINOGEN NORMAL (NORMAL)
[2017-08-23 20:00] VITALS: BP 104/60
[2017-08-24] VITALS (41 sets, daily range): BP systolic 81–148; BP diastolic 52–80
[2017-08-24 07:31] LABS: PLT FUNCT.(P2Y12) PLAVIX 302 PRU (194-418)
[2017-08-24 11:48] LABS: HEMATOCRIT 38.1 % (42.0-54.0); HEMOGLOBIN 12.5 g/dL (13.5-17.5); MCH 29.4 pg (26.0-34.0); MCHC 32.8 g/dL (31.0-37.0); MCV 89.6 fL (80.0-100.0); MEAN PLATELET VOLUME 9.5 fL (7.4-10.4); RBC 4.25 10x6/uL (4.20-6.10); RDW 14.8 % (11.5-14.5); WBC 12.5 10x3/uL (4.8-10.8)
[2017-08-24 11:57] LABS: APTT 34.1 SECONDS (22.8-39.4)
[2017-08-24 11:58] LABS: INR 1.59 (0.85-1.17); PROTIME 18.5 SECONDS (11.6-15.0)
[2017-08-24 12:02] LABS: CALC OSMOLALITY 282 mosm/kg (275-300); CALCIUM 7.7 mg/dL (8.5-10.1); CARBON DIOXIDE 26.7 mmol/L (21.0-32.0); CHLORIDE - SERUM 106 mmol/L (98-107); POTASSIUM - SERUM 4.2 mmol/L (3.5-5.1); SODIUM 138 mmol/L (136-145); UREA NITROGEN 23 mg/dL (7-18); eGFR NON AFRICAN AMERICAN 80 mL/min (90-120)
[2017-08-24 12:05] LABS: GLUCOSE 161 mg/dL (74-106)
[2017-08-25] VITALS (40 sets, daily range): BP systolic 105–154; BP diastolic 58–92
[2017-08-25 05:42] LABS: HEMATOCRIT 40.3 % (42.0-54.0); HEMOGLOBIN 12.9 g/dL (13.5-17.5); MCH 28.9 pg (26.0-34.0); MCV 90.4 fL (80.0-100.0); MEAN PLATELET VOLUME 10.2 fL (7.4-10.4); RBC 4.46 10x6/uL (4.20-6.10); RDW 15.2 % (11.5-14.5); WBC 12.3 10x3/uL (4.8-10.8)
[2017-08-25 06:16] LABS: ALBUMIN 2.5 g/dL (3.4-5.0); ALKALINE PHOSPHATASE 50 U/L (46-116); ALT (SGPT) 28 U/L (10-68); BILIRUBIN - TOTAL 1.14 mg/dL (0.2-1.3); CALC OSMOLALITY 277 mosm/kg (275-300); CALCIUM 7.8 mg/dL (8.5-10.1); CARBON DIOXIDE 27.2 mmol/L (21.0-32.0); CHLORIDE - SERUM 103 mmol/L (98-107); CREATININE - SERUM 0.9 mg/dL (0.6-1.3); GLUCOSE 153 mg/dL (74-106); POTASSIUM - SERUM 4.5 mmol/L (3.5-5.1); PROTEIN - SERUM 5.9 g/dL (6.4-8.2); SODIUM 136 mmol/L (136-145); UREA NITROGEN 20 mg/dL (7-18); eGFR NON AFRICAN AMERICAN > 90 mL/min (90-120)
[2017-08-26] VITALS (23 sets, daily range): BP systolic 94–133; BP diastolic 56–91
[2017-08-26 05:19] LABS: HEMATOCRIT 39.3 % (42.0-54.0); HEMOGLOBIN 12.8 g/dL (13.5-17.5); MCH 29.2 pg (26.0-34.0); MCHC 32.6 g/dL (31.0-37.0); MCV 89.7 fL (80.0-100.0); MEAN PLATELET VOLUME 10.1 fL (7.4-10.4); RBC 4.38 10x6/uL (4.20-6.10); RDW 15.1 % (11.5-14.5)
[2017-08-26 05:29] LABS: WBC 16.4 10x3/uL (4.8-10.8)
[2017-08-26 05:49] LABS: ALBUMIN 2.5 g/dL (3.4-5.0); ALKALINE PHOSPHATASE 57 U/L (46-116); ALT (SGPT) 45 U/L (10-68); BILIRUBIN - TOTAL 0.74 mg/dL (0.2-1.3); CALC OSMOLALITY 274 mosm/kg (275-300); CALCIUM 8.4 mg/dL (8.5-10.1); CARBON DIOXIDE 28.2 mmol/L (21.0-32.0); CHLORIDE - SERUM 101 mmol/L (98-107); CREATININE - SERUM 0.9 mg/dL (0.6-1.3); GLUCOSE 89 mg/dL (74-106); PROTEIN - SERUM 6.4 g/dL (6.4-8.2); SODIUM 136 mmol/L (136-145); UREA NITROGEN 24 mg/dL (7-18); eGFR NON AFRICAN AMERICAN > 90 mL/min (90-120)
[2017-08-27] VITALS (24 sets, daily range): BP systolic 96–131; BP diastolic 58–85
[2017-08-27 04:54] LABS: HEMATOCRIT 37.3 % (42.0-54.0); MCHC 32.2 g/dL (31.0-37.0); MCV 90.1 fL (80.0-100.0); MEAN PLATELET VOLUME 10.2 fL (7.4-10.4); RBC 4.14 10x6/uL (4.20-6.10); RDW 14.9 % (11.5-14.5); WBC 12.4 10x3/uL (4.8-10.8)
[2017-08-27 05:14] LABS: ALBUMIN 2.4 g/dL (3.4-5.0); ALKALINE PHOSPHATASE 62 U/L (46-116); ALT (SGPT) 53 U/L (10-68); BILIRUBIN - TOTAL 0.75 mg/dL (0.2-1.3); CALC OSMOLALITY 273 mosm/kg (275-300); CALCIUM 8.4 mg/dL (8.5-10.1); CARBON DIOXIDE 27.8 mmol/L (21.0-32.0); CHLORIDE - SERUM 98 mmol/L (98-107); GLUCOSE 118 mg/dL (74-106); POTASSIUM - SERUM 4.5 mmol/L (3.5-5.1); PROTEIN - SERUM 6.4 g/dL (6.4-8.2); SODIUM 133 mmol/L (136-145); eGFR NON AFRICAN AMERICAN 80 mL/min (90-120)
[2017-08-27 05:19] LABS: UREA NITROGEN 32 mg/dL (7-18)
[2017-08-28] VITALS (23 sets, daily range): BP systolic 92–159; BP diastolic 56–98
[2017-08-28 06:17] LABS: HEMATOCRIT 35.3 % (42.0-54.0); HEMOGLOBIN 11.3 g/dL (13.5-17.5); MCH 28.8 pg (26.0-34.0); MCV 89.8 fL (80.0-100.0); MEAN PLATELET VOLUME 9.9 fL (7.4-10.4); RBC 3.93 10x6/uL (4.20-6.10); RDW 14.8 % (11.5-14.5); WBC 10.4 10x3/uL (4.8-10.8)
[2017-08-28 06:44] LABS: ALBUMIN 2.2 g/dL (3.4-5.0); ALKALINE PHOSPHATASE 63 U/L (46-116); ALT (SGPT) 63 U/L (10-68); CALC OSMOLALITY 275 mosm/kg (275-300); CALCIUM 8.3 mg/dL (8.5-10.1); CARBON DIOXIDE 27.2 mmol/L (21.0-32.0); CHLORIDE - SERUM 99 mmol/L (98-107); CREATININE - SERUM 0.8 mg/dL (0.6-1.3); GLUCOSE 118 mg/dL (74-106); PROTEIN - SERUM 6.3 g/dL (6.4-8.2); SODIUM 135 mmol/L (136-145); UREA NITROGEN 26 mg/dL (7-18); eGFR NON AFRICAN AMERICAN > 90 mL/min (90-120)
[2017-08-28 07:00] LABS: BILIRUBIN - TOTAL 0.74 mg/dL (0.2-1.3)
[2017-08-29] VITALS (24 sets, daily range): BP systolic 91–141; BP diastolic 53–90
[2017-08-29 06:10] LABS: HEMATOCRIT 34.8 % (42.0-54.0); HEMOGLOBIN 11.1 g/dL (13.5-17.5); MCH 28.5 pg (26.0-34.0); MCHC 31.9 g/dL (31.0-37.0); MCV 89.5 fL (80.0-100.0); MEAN PLATELET VOLUME 9.7 fL (7.4-10.4); RBC 3.89 10x6/uL (4.20-6.10); RDW 14.6 % (11.5-14.5)
[2017-08-29 06:32] LABS: ALBUMIN 2.2 g/dL (3.4-5.0); ALKALINE PHOSPHATASE 64 U/L (46-116); ALT (SGPT) 71 U/L (10-68); CALC OSMOLALITY 272 mosm/kg (275-300); CALCIUM 8.4 mg/dL (8.5-10.1); CARBON DIOXIDE 29.6 mmol/L (21.0-32.0); CHLORIDE - SERUM 101 mmol/L (98-107); CREATININE - SERUM 0.8 mg/dL (0.6-1.3); GLUCOSE 106 mg/dL (74-106); POTASSIUM - SERUM 4.4 mmol/L (3.5-5.1); PROTEIN - SERUM 6.2 g/dL (6.4-8.2); SODIUM 135 mmol/L (136-145); UREA NITROGEN 20 mg/dL (7-18); eGFR NON AFRICAN AMERICAN > 90 mL/min (90-120)
[2017-08-29] MEDS ORDERED: HYDROCODONE-APA1 TAB PO (16:10)
[2017-08-30] VITALS (8 sets, daily range): BP systolic 98–122; BP diastolic 55–75
[2017-08-30] MEDS ORDERED: NORVASC10 MG PO (08:56)
[2017-08-30] MEDS ORDERED: CORDARONE200 MG PO (08:56)
[2017-08-30] MEDS ORDERED: TOPROL XL25 MG PO (08:57)
[2017-08-30] MEDS ORDERED: ASPIRIN81 MG PO (08:59)
[2017-08-30] MEDS ORDERED: HYDROCODONE-APA1 TAB PO (09:00)
[2017-08-30] MEDS ORDERED: FUROSEMIDE40 MG PO (09:01)
[2017-08-30] MEDS ORDERED: K-DUR20 MEQ PO (09:03)
[2017-08-30] MEDS ORDERED: COLACE100 MG PO (09:05)
== END 2017-08-30 12:55 | disposition home or self-care (01) | DRG 220 ==
LOC: D.ER 14:12 → D.EDHOLD 18:19 → OBSVTIME 19:21 → D.CVICU 19:22 → D.M2 19:22 → D.EDHOLD 19:22 → D.M2 23:03 → D.CVICU 08-24 06:50
PROVIDERS: Emergency Medicine; Internal Medicine Cardiovascular Disease; Thoracic Surgery (Cardiothoracic Vascular Surgery)
PROC: 02RF0KZ Replacement of Aortic Valve with Nonautologous Tissue Substitute, Open Approach (ICD-10-PCS; principal; 2017-08-24 07:30)
DX: I35.0 Nonrheumatic aortic (valve) stenosis (principal); I50.30 Unspecified diastolic (congestive) heart failure; I11.0 Hypertensive heart disease with heart failure; R09.89 Other specified symptoms and signs involving the circulatory and respiratory systems

== ENCOUNTER → 2017-09-12 13:38 | Outpatient (CLI) | payer MEDICAID ==
[2017-08-21 19:36] VITALS: BMI 31.6
[~2017-09-12 13:38] MED LIST changes: +ASPIRIN81 MG PO; +COLACE100 MG PO; +CORDARONE200 MG PO; +FUROSEMIDE40 MG PO; +HYDROCODONE-APA1 TAB PO; +K-DUR20 MEQ PO; +NORVASC10 MG PO; +TOPROL XL25 MG PO
== END | disposition home or self-care (01) ==
LOC: D.RAD 11:15
DX: J91.8 Pleural effusion in other conditions classified elsewhere (principal); D64.9 Anemia, unspecified

== ENCOUNTER → 2018-09-30 12:50 | Outpatient (CLI) | payer MEDICAID ==
[2017-08-21 19:36] VITALS: BMI 31.6
== END | disposition home or self-care (01) ==
LOC: D.CT 09-02 14:30
PROVIDERS: ATTEND Thoracic Surgery (Cardiothoracic Vascular Surgery)
DX: I71.2 Thoracic aortic aneurysm, without rupture (principal)

== ENCOUNTER 2019-02-15 12:46 | Inpatient (IN) | payer MEDICAID ==
[~2019-02-15] VITALS: Ht 185.4 cm; Wt 104.5 kg
[2019-02-15 13:24] LABS: BASOPHILS 0.1 % (0-2); EOSINOPHILS 0.1 % (0-7); HEMATOCRIT 40.1 % (42.0-54.0); HEMOGLOBIN 13.8 g/dL (13.5-17.5); IMMATURE GRANULOCYTES 0.2 % (0-5); LYMPHOCYTES 16.2 % (15-50); MCH 29.4 pg (26.0-34.0); MCHC 34.4 g/dL (31.0-37.0); MCV 85.5 fL (80.0-100.0); MEAN PLATELET VOLUME 9.2 fL (7.4-10.4); MONOCYTES 8.6 % (2-11); NEUTROPHILS 74.8 % (40-80); RBC 4.69 10x6/uL (4.20-6.10); RDW 13.8 % (11.5-14.5); WBC 8.5 10x3/uL (4.8-10.8)
[2019-02-15 13:25] LABS: PLATELET COUNT 152 10x3/uL (130-400)
[2019-02-15 13:41] LABS: APPEARANCE CLEAR (CLEAR); BILIRUBIN NEGATIVE (NEGATIVE); COLOR DK YELLOW (YELLOW); GLUCOSE NEGATIVE (NEGATIVE); KETONE NEGATIVE (NEGATIVE); NITRITE NEGATIVE (NEGATIVE); PROTEIN NEGATIVE (NEGATIVE); UROBILINOGEN NORMAL (NORMAL)
[2019-02-15 13:43] LABS: ANION GAP 12.8 mmol/L (8-16); BILIRUBIN - TOTAL 0.86 mg/dL (0.2-1.3); CALCIUM 8.6 mg/dL (8.5-10.1); CARBON DIOXIDE 23.6 mmol/L (21.0-32.0); CREATININE - SERUM 1.1 mg/dL (0.6-1.3); POTASSIUM - SERUM 4.4 mmol/L (3.5-5.1); PROTEIN - SERUM 7.9 g/dL (6.4-8.2)
[2019-02-15 13:43] LABS: BACTERIA FEW /hpf (NONE SEEN); EPITHELIAL CELLS 0-5 /hpf (0-5); MUCUS <1+ /lpf (NONE SEEN); RED CELLS - URINE 0-5 /hpf (0-5); WHITE CELLS - URINE 0-5 /hpf (0-5)
[2019-02-15 13:56] LABS: C-REACTIVE PROTEIN 6.8 mg/dL (0.0-0.9); MAGNESIUM - SERUM 1.9 mg/dL (1.8-2.4); THYROID STIMULATING HORMONE 1.06 uIU/mL (0.36-3.74)
[2019-02-15 13:58] LABS: TROPONIN-I 0.093 ng/mL (0.000-0.060)
[2019-02-15 14:15] VITALS: BP 115/71
[2019-02-15 14:45] VITALS: BP 117/76
[2019-02-15 15:00] VITALS: BP 118/75
[2019-02-15 16:35] VITALS: BP 116/72
--- NOTE | 2019-02-15 17:50 | MORECARE ---
CASE MANAGEMENT DISCHARGE SUMMARY PATIENT: ARMIDA LONDON UNIT: [id number] ADM DATE: 02/15/19 AGE: 63 : 53 SEX: M ROOM/BED: D.7130 AUTHOR: JENNA,DOC PHYSICIAN: REFERRING PHYSICIAN: SUPA CALIX MD DATE OF SERVICE: 02/15/19 Discharge Plan Patient Name: ARMIDA LONDON Facility: [facility]:[place] : 1955 Planned Disposition: Home Anticipated Discharge Date: 02/18/19 Discharge Date: Expected LOS: 3 Initial Reviewer: [email or web address] Initial Review Date: 02/15/2019 Generated: 02/15/19 6:49 pm Comments DCP- Discharge Planning Updated by [email or web address]: Sheba Dwyer on 02/15/19 4:[address] Patient Name: ARMIDA LONDON Admission Status: ER Accout number: [id number] Admission Date: 02-15-2019 : 1955 Admission Diagnosis: Attending: SUPA CALIX Current LOS: 1 Anticipated DC Date: 02-18-2019 Planned Disposition: Home Primary [place]: [place] PRIVATE [employer]IONS [place] Discharge Planning Comments: DC PLAN: Return home with his independently. ANTICIPATED DC NEEDS: Denied known dc needs in the ER at time of admission. CM met with patient to complete initial dc planning assessment. CM educated patient on the CM role and verbal consent given by patient to complete assessment. CM verified patient's address, phone number, and emergency contact phone numbers. Patient lives at home with his independently. At discharge patient plans to return home and feels this is a safe discharge. CM discussed availability of home health, rehab services, and medical equipment. Patient denied known discharge needs at this time. Patient reports his will transport him home at time of discharge. CM will continue to follow and will assist as needed with dc plans/needs. Spike Machine Feeder: Sheba Dwyer RN, [facility] DCPIA - Discharge Planning Initial Assessment Updated by [email or web address]: Sheba Dwyer on 02/15/19 5:45 pm * Is the patient Alert and Oriented? Yes * How many steps to enter\exit or inside your home? one * PCP Cant remember her name in [place] on [address] * Pharmacy [facility] in [place] * Preadmission Environment Home with Family * ADLs Independent * Equipment None * List name and contact numbers for known caregivers / representatives who currently or will assist patient after discharge: Lluvia [place] - - [phone] * Verbal permission to speak to the caregivers and representatives has been obtained from the patient. Yes * Community resources currently utilized None * Additional services required to return to the preadmission environment? No * Can the patient safely return to the preadmission environment? Yes * Has this patient been hospitalized within the prior 30 days at any hospital? No Patient Name: ARMIDA LONDON Page 80000 at 1750 All edits/amendments must be made on the electronic document DICTATION DATE: 02/15/191748 TELEPHONE QUOTATION CLERK: CHARLA 02/15/191748 RPT#: [id number] DC DATE: STATUS: ADM IN [facility] [address] [place] [address] END OF REPORT
[2019-02-15 19:06] LABS: ERYTHROCYTE SEDIMENTATION RATE 46 mm/hr (0-20)
[2019-02-15 20:35] VITALS: BP 118/72
[2019-02-15 23:34] VITALS: BP 135/87
[2019-02-16 05:44] LABS: BASOPHILS 0.1 % (0-2); EOSINOPHILS 0 % (0-7); HEMATOCRIT 41.2 % (42.0-54.0); LYMPHOCYTES 19.4 % (15-50); MCH 29.4 pg (26.0-34.0); MCV 86.6 fL (80.0-100.0); MEAN PLATELET VOLUME 10.7 fL (7.4-10.4); MONOCYTES 3.9 % (2-11); NEUTROPHILS 76.6 % (40-80); PLATELET COUNT 130 10x3/uL (130-400); RBC 4.76 10x6/uL (4.20-6.10); RDW 13.7 % (11.5-14.5); WBC 7.2 10x3/uL (4.8-10.8)
[2019-02-16 05:58] LABS: CALC OSMOLALITY 270 mosm/kg (275-300); CALCIUM 8.6 mg/dL (8.5-10.1); CARBON DIOXIDE 21.1 mmol/L (21.0-32.0); CHLORIDE - SERUM 102 mmol/L (98-107); CREATININE - SERUM 0.9 mg/dL (0.6-1.3); GLUCOSE 142 mg/dL (74-106); SODIUM 134 mmol/L (136-145); UREA NITROGEN 15 mg/dL (7-18); eGFR NON AFRICAN AMERICAN 90 mL/min (90-120)
[2019-02-16 05:59] LABS: POTASSIUM - SERUM 5.7 mmol/L (3.5-5.1)
[2019-02-16 08:33] VITALS: BP 124/81
[2019-02-16 12:06] VITALS: BP 106/66
[2019-02-16 15:00] VITALS: BP 117/70
[2019-02-16 20:00] VITALS: BP 111/65
[2019-02-17] VITALS (7 sets, daily range): BP systolic 98–136; BP diastolic 47–75; Ht 185.4 cm; Wt 104.5 kg
[2019-02-17 06:42] LABS: BASOPHILS 0 % (0-2); EOSINOPHILS 0.2 % (0-7); HEMATOCRIT 38.1 % (42.0-54.0); HEMOGLOBIN 13.1 g/dL (13.5-17.5); IMMATURE GRANULOCYTES 0.4 % (0-5); LYMPHOCYTES 14.7 % (15-50); MCH 29.2 pg (26.0-34.0); MCHC 34.4 g/dL (31.0-37.0); MCV 84.9 fL (80.0-100.0); MEAN PLATELET VOLUME 9.5 fL (7.4-10.4); NEUTROPHILS 77.7 % (40-80); RBC 4.49 10x6/uL (4.20-6.10); RDW 13.6 % (11.5-14.5)
[2019-02-17 06:48] LABS: PLATELET COUNT 161 10x3/uL (130-400); WBC 10.6 10x3/uL (4.8-10.8)
[2019-02-17 07:02] LABS: CALC OSMOLALITY 267 mosm/kg (275-300); CARBON DIOXIDE 24.8 mmol/L (21.0-32.0); CHLORIDE - SERUM 101 mmol/L (98-107); GLUCOSE 99 mg/dL (74-106); SODIUM 133 mmol/L (136-145); UREA NITROGEN 18 mg/dL (7-18); eGFR NON AFRICAN AMERICAN 80 mL/min (90-120)
[2019-02-17 07:03] LABS: POTASSIUM - SERUM 3.8 mmol/L (3.5-5.1)
[2019-02-18 04:00] VITALS: BP 124/77
[2019-02-18 06:48] LABS: CALC OSMOLALITY 275 mosm/kg (275-300); CALCIUM 8.2 mg/dL (8.5-10.1); CARBON DIOXIDE 22.9 mmol/L (21.0-32.0); CHLORIDE - SERUM 103 mmol/L (98-107); CREATININE - SERUM 0.8 mg/dL (0.6-1.3); GLUCOSE 96 mg/dL (74-106); POTASSIUM - SERUM 4.3 mmol/L (3.5-5.1); SODIUM 137 mmol/L (136-145); UREA NITROGEN 19 mg/dL (7-18); eGFR NON AFRICAN AMERICAN > 90 mL/min (90-120)
[2019-02-18 06:51] LABS: BASOPHILS 0.1 % (0-2); EOSINOPHILS 0.1 % (0-7); HEMATOCRIT 37.5 % (42.0-54.0); HEMOGLOBIN 12.8 g/dL (13.5-17.5); IMMATURE GRANULOCYTES 0.2 % (0-5); LYMPHOCYTES 15.1 % (15-50); MCH 28.9 pg (26.0-34.0); MCHC 34.1 g/dL (31.0-37.0); MCV 84.7 fL (80.0-100.0); MEAN PLATELET VOLUME 9.2 fL (7.4-10.4); MONOCYTES 7.1 % (2-11); NEUTROPHILS 77.4 % (40-80); PLATELET COUNT 152 10x3/uL (130-400); RBC 4.43 10x6/uL (4.20-6.10); RDW 13.6 % (11.5-14.5); WBC 10.4 10x3/uL (4.8-10.8)
[2019-02-18 08:02] VITALS: BP 106/77
[2019-02-18 11:19] VITALS: BP 120/72
[2019-02-18 15:08] VITALS: BP 114/72
[2019-02-18] MEDS ORDERED: PREDNISONE10 MG PO (17:22)
[2019-02-18] MEDS ORDERED: DOXYCYCLINE HY100 M2 PO (17:26)
--- NOTE | 2019-02-19 08:16 | MORECARE ---
CASE MANAGEMENT DISCHARGE SUMMARY PATIENT: ARMIDA LONDON UNIT: [id number] ADM DATE: 02/15/19 AGE: 63 : 53 SEX: M ROOM/BED: D.3624 AUTHOR: JENNA,DOC PHYSICIAN: REFERRING PHYSICIAN: SUPA CALIX MD DATE OF SERVICE: 02/19/19 Discharge Plan Patient Name: ARMIDA LONDON Facility: [facility]:[place] : 1955 Planned Disposition: Home Anticipated Discharge Date: 02/18/19 Discharge Date: 02/18/2019 Expected LOS: 3 Initial Reviewer: [email or web address] Initial Review Date: 02/15/2019 Generated: 02/19/19 9:15 am DCP- Discharge Planning Updated by [email or web address]: Sheba Dwyer on 02/15/19 4:[address] Patient Name: ARMIDA LONDON Admission Status: ER Accout number: [id number] Admission Date: 02-15-2019 : 1955 Admission Diagnosis: Attending: SUPA CALIX Current LOS: 1 Anticipated DC Date: 02-18-2019 Planned Disposition: Home [place] [employer] [place] Discharge Planning Comments: DC PLAN: Return home with his independently. ANTICIPATED DC NEEDS: Denied known dc needs in the ER at time of admission. CM met with patient to complete initial dc planning assessment. CM educated patient on the CM role and verbal consent given by patient to complete assessment. CM verified patient's address, phone number, and emergency contact phone numbers. Patient lives at home with his independently. At discharge patient plans to return home and feels this is a safe discharge. CM discussed availability of home health, rehab services, and medical equipment. Patient denied known discharge needs at this time. Patient reports his will transport him home at time of discharge. CM will continue to follow and will assist as needed with dc plans/needs. Monument Erector: Sheba Dwyer RN, [facility] DCPIA - Discharge Planning Initial Assessment Updated by [email or web address]: Sheba Dwyer on 02/15/19 5:45 pm * Is the patient Alert and Oriented? Yes * How many steps to enter\exit or inside your home? one * PCP Cant remember her name in [place] on [facility]. * Pharmacy [facility] in [place] * Preadmission Environment Home with Family * ADLs Independent * Equipment None * List name and contact numbers for known caregivers / representatives who currently or will assist patient after discharge: Lluvia [place] - - [phone] * Verbal permission to speak to the caregivers and representatives has been obtained from the patient. Yes * Community resources currently utilized None * Additional services required to return to the preadmission environment? No * Can the patient safely return to the preadmission environment? Yes * Has this patient been hospitalized within the prior 30 days at any hospital? No Last DP export: 02/15/19 4:50 p Patient Name: ARMIDA LONDON Page [id number] at 0816 All edits/amendments must be made on the electronic document DICTATION DATE: 02/19/19814 WAISTBAND SETTER LOCKSTITCH: CHARLA 02/19/19814 RPT#: [id number] DC DATE:02/18/19 STATUS: DIS IN [facility] [address] [place] [address] END OF REPORT
[2019-02-20 14:09] LABS: RMSF IGM 0.67 index (0.00-0.89)
== END 2019-02-18 18:30 | disposition home or self-care (01) | DRG 315 ==
LOC: D.ER 12:46 → D.M2 15:30
PROVIDERS: Family Medicine; ADMIT Internal Medicine Nephrology; ATTEND Internal Medicine Nephrology
DX: R94.39 Abnormal result of other cardiovascular function study (principal); E87.1 Hypo-osmolality and hyponatremia; E87.5 Hyperkalemia; I10 Essential (primary) hypertension; F32.9 Major depressive disorder, single episode, unspecified; R53.1 Weakness